=== PATIENT | male | born 1950 | race Hispanic/Latino ===

== ENCOUNTER → 2023-09-21 | Outpatient (CLI) | payer OTHER | END | disposition home or self-care (01) | LOC: RAH 15:03 | PROVIDERS: ATTEND Internal Medicine | DX: R19.09 Other intra-abdominal and pelvic swelling, mass and lump (principal) | CPT/HCPCS: 76882 ==

== ENCOUNTER → 2023-11-27 | Outpatient (CLI) | payer OTHER | END | disposition home or self-care (01) | LOC: RAH 11:24 | PROVIDERS: ATTEND Internal Medicine | DX: I11.9 Hypertensive heart disease without heart failure (principal); R06.00 Dyspnea, unspecified; J44.9 Chronic obstructive pulmonary disease, unspecified | CPT/HCPCS: 93306 ==

== ENCOUNTER → 2024-09-08 | Outpatient (CLI) | payer OTHER ==
--- NOTE | 2024-09-08 14:19 | HMCIMG ---
Exam Type: US VENOUS DOPPLER BILATERAL Clinical Information: Localized edema Comparison: None Findings: The examination shows normal deep venous system. There is normal compressibility at all levels. There is no intraluminal clot. There is no occlusion. Adequate response is obtained on augmentation. Impression: No evidence of DVT.
--- NOTE | 2024-09-08 15:56 | HMCSR ---
APPROVED REPORT EXAM: Two-dimensional and M-mode echocardiogram with Doppler and color Doppler. INDICATION ICD: R60.0, R06.09, R60.9 2D Dimensions RVDd3.7 cmLVEF(%)77.3 (>50%)LVED Vol(simp.)45.0 mL IVSd1.3 (0.7-1.1cm)FS(%)46 %LVES Vol(simp.)15.0 mL LVDd5.0 (3.8-5.6cm)LA (2D)4.7 (1.6-4.0cm)LVEF(%, simp.)66 % PWd1.1 (0.7-1.1cm)Ao Root(2D)3.1 (2.0-3.7cm) IVSs1.8 cmLVOT diam2.5 (1.8-2.4cm) LVDs2.7 (2.5-4.0cm) PWs1.7 cm M-Mode Dimensions EPSS0.4 cm LA (MM)6.2 (1.6-4.0cm) Ao Root(MM)3.0 (2.0-3.7cm) Aortic Valve AoV Vmax1.6 m/Kiarra Peak GR9.7 mmHgLVOT Vmax1.3 m/s AoV VTI0.2 mAo Mean GR6.3 mmHgLVOT VTI0.21 m SERENITY (VMAX)3.82 cm2AVA (VTI) 4.1 cm2 Mitral Valve MV E Vmax59.7 cm/sDECEL Byml574 ms MV A Srhr284.9 cm/sP 1/2 T25 ms E/A ratio0.6MVA (PHT)8.7 cm2 TDI E/E' Medial9.7E/E' Jaiiszw33.4 Medial E' Peak V6.13 cm/sLateral E' Peak V5.75 cm/s Pulmonary Valve PV Vmax1.5 m/sPV VTI0.24 mPV Mean GR4.8 mmHg PV Peak GR8.8 mmHg Tricuspid Valve TR Vmax1.8 m/sRAP (EST) 8 pkHyZJCC29.3 mmHg TR Peak GR13.3 mmHg Left Ventricle The left ventricle is normal size. There is moderate left ventricular wall thickness. LVEF is >65%. S tage I diastolic dysfunction. Right Ventricle The right ventricle is normal size. The right ventricular systolic function is normal. Atria The left atrium size is normal. The right atrium size is normal. Aortic Valve The aortic valve is normal in structure. No aortic regurgitation is present. There is no aortic valvu lar stenosis. Mitral Valve The mitral valve is normal in structure. There is no mitral valve regurgitation noted. There is no mi tral valve stenosis. Tricuspid Valve The tricuspid valve is normal in structure. There is no tricuspid valve regurgitation noted. Pulmonic Valve The pulmonary valve is normal in structure. There is no pulmonic valvular regurgitation. Great Vessels The aortic root is normal in size. IVC is not well visualized. Pericardium There is no pericardial effusion. Other Information Quality : Adequate Conclusion There is moderate left ventricular wall thickness. LVEF is >65%. Stage I diastolic dysfunction.
== END | disposition home or self-care (01) ==
LOC: RAH 09:35
PROVIDERS: ATTEND Internal Medicine
DX: I51.89 Other ill-defined heart diseases (principal); R60.0 Localized edema; R06.09 Other forms of dyspnea; R60.9 Edema, unspecified
CPT/HCPCS: 93306; 93970

== ENCOUNTER → 2024-09-28 | Outpatient (CLI) | payer OTHER ==
[2024-09-28 22:34] VITALS: PULSE 85; RESP 14
[2024-09-28 23:00] VITALS: PULSE 70; RESP 14
[2024-09-28 23:29] VITALS: PULSE 76; RESP 16
[2024-09-29] VITALS (11 sets, daily range): PULSE 65–78; RESP 12–18
== END | disposition home or self-care (01) ==
LOC: SLP 20:41
PROVIDERS: ATTEND Internal Medicine
DX: G47.33 Obstructive sleep apnea (adult) (pediatric) (principal); R06.83 Snoring; I10 Essential (primary) hypertension; R29.818 Other symptoms and signs involving the nervous system; E66.9 Obesity, unspecified; Z68.41 Body mass index [BMI] 40.0-44.9, adult
CPT/HCPCS: 95810

== ENCOUNTER → 2024-12-28 | Outpatient (CLI) | payer OTHER ==
[2024-12-28] VITALS (10 sets, daily range): PULSE 65–86; RESP 10–16
[2024-12-29] VITALS (10 sets, daily range): PULSE 58–77; RESP 13–20
== END | disposition home or self-care (01) ==
LOC: SLP 20:26
PROVIDERS: ATTEND Internal Medicine
DX: G47.33 Obstructive sleep apnea (adult) (pediatric) (principal); R29.818 Other symptoms and signs involving the nervous system; R06.83 Snoring; R09.02 Hypoxemia; I10 Essential (primary) hypertension; E66.9 Obesity, unspecified; Z68.41 Body mass index [BMI] 40.0-44.9, adult
CPT/HCPCS: 95811

== ENCOUNTER → 2025-02-09 | Outpatient (CLI) | payer OTHER ==
[~2025-02-09] MED LIST: IOHEXOL-350 50ML VIAL IV ONE
--- NOTE | 2025-02-09 21:35 | HMCIMG ---
EXAM: CT CHEST WITHOUT AND WITH CONTRAST Technique: Helical computed tomography of the chest acquired without and with intravenous contrast with axial images and multiplanar reformations; dose reduction per ALARA with automatic exposure control and iterative reconstruction. CTDIvol 39.80 mGy; DLP 1594.60 mGy???cm. Contrast: Standard dose of intravenous contrast administered. Clinical Information: Abnormal findings on diagnostic imaging of other specified body structures. Comparison: None Findings: Soft tissues: No soft-tissue mass or collection. Lungs and large airways: Central airways patent; no focal consolidation or discrete pulmonary nodule; mild bilateral mosaic attenuation likely reflecting suboptimal inspiration or small-airway disease. Pleura: No pleural effusion or pneumothorax; mild bilateral pleural thickening; pleura otherwise clear of mass. Heart and pericardium: Cardiac size within normal limits; no pericardial effusion. Aorta: Thoracic aorta normal in course and caliber; proximal ascending aorta measures 35 mm. Pulmonary arteries: No filling defect to suggest pulmonary embolism. Lymph nodes (mediastinal/hilar/axillary): No enlarged lymph nodes by size criteria. Mediastinum and shreya: No mediastinal mass. Chest wall and lower neck: No acute abnormality. Bones/joints: Mild degenerative changes of the thoracic spine; no acute osseous abnormality. Upper abdomen: Mild hepatic steatosis on survey images; post-cholecystectomy status. Impression: * No acute intrathoracic process; specifically, no pulmonary embolism and no suspicious pulmonary nodule identified. * Mild bilateral mosaic attenuation, which may reflect small-airway disease or low-inspiratory effort; correlate with symptoms and spirometry as clinically indicated. * Mild bilateral pleural thickening without effusion or pneumothorax. * Proximal ascending aorta 35 mm???within expected caliber on this exam. * Incidental mild hepatic steatosis; post-cholecystectomy changes. /[place]
== END | disposition home or self-care (01) ==
LOC: RAH 12:42
PROVIDERS: ATTEND Internal Medicine
DX: R93.89 Abnormal findings on diagnostic imaging of other specified body structures (principal); M47.817 Spondylosis without myelopathy or radiculopathy, lumbosacral region; Z90.49 Acquired absence of other specified parts of digestive tract
CPT/HCPCS: 71270; Q9967